=== PATIENT | female | born 1970 | race Caucasian/White ===

== ENCOUNTER 2017-05-05 05:25 | Day surgery (SDC) | payer OTHER ==
[~2017-05-05] VITALS: Ht 165.1 cm; Wt 90.0 kg
[~2017-05-05 05:25] MED LIST: ALPRAZOLAM0.25 M2 PO; ANTIVERT25 MG PO; ESCITALOPRAM OX10 MG PO; MAXALT10 MG PO; MOTRIN800 MG PO; NOHOMEMEDS; NORCO 7.5/321 TABLET PO; PEPCID40 MG PO; RIZATRIPTAN10 MG PO; SYNTHROID100 MCG PO; VALIUM5 MG PO; VITAMIN B-3 PO; ZOFRAN4 MG PO
[2017-05-05 06:13] VITALS: BP 114/60
[2017-05-05 10:05] VITALS: BP 140/74
[2017-05-05 10:52] VITALS: BP 150/76
== END 2017-05-05 11:12 | disposition home or self-care (01) ==
LOC: SDC 05:25
DX: N84.0 Polyp of corpus uteri (principal); N92.0 Excessive and frequent menstruation with regular cycle; E03.9 Hypothyroidism, unspecified; E66.9 Obesity, unspecified; F43.22 Adjustment disorder with anxiety
CPT/HCPCS: 88305; J0131; J0690; J1100; J1170; J1885; J2250; J2405; J3010

== ENCOUNTER 2017-05-12 07:01 | Emergency (ER) | payer OTHER ==
[~2017-05-12] VITALS: Ht 165.1 cm; Wt 93.9 kg
[2017-05-12 08:06] LABS: BASOPHIL COUNT 0.1 K/uL (0-0.1); EOSINOPHIL (%) 2.3 % (0-5); EOSINOPHIL COUNT 0.3 K/uL (0-0.3); HEMATOCRIT 42.1 % (36.0-46.0); IMMATURE GRANULOCYTE (%) 0.7 % (0.0-0.7); IMMATURE GRANULOCYTE COUNT 0.1 K/uL; INSTRUMENT ABS NEUTROPHIL CT 7.6 K/uL; LYMPHOCYTE COUNT 2.3 K/uL (1.0-2.8); MCH 29.7 PG (29.0-34.0); MCV 87.5 FL (83-99); MEAN PLAT.VOLUME 11.7 uM^3 (9.5-12.4); MONOCYTE (%) 11.3 % (3-12); MONOCYTE COUNT 1.3 K/uL (0-0.8); NEUTROPHIL (%) 65.6 % (45-76); NEUTROPHIL COUNT 7.6 K/uL (1.8-6.4); PLATELET COUNT 247 K/uL (156-360); RBC DIS.WIDTH-CV 12.7 % (11.8-14.6); RBC DIS.WIDTH-SD 40.9 % (39-53); RED BLOOD COUNT 4.81 M/uL (3.80-5.20); WHITE BLOOD COUNT 11.6 K/uL (4.1-10.2)
[2017-05-12 08:46] LABS: ANION GAP 10 MEQ/L (2-14); CHLORIDE 105 MEQ/L (99-109); GFR ESTIMATE (CALCULATED) > 59 mL/min/; GLUCOSE 110 mg/dL (70-99); POTASSIUM 3.3 MEQ/L (3.7-5.4); SAMPLE HEMOLYSIS CHECK 0; SAMPLE ICTERIC CHECK 0; SAMPLE LIPEMIA CHECK 0; SODIUM 139 MEQ/L (136-147); UREA NITROGEN (BUN) 16 mg/dL (9-23)
[2017-05-12] MEDS ORDERED: ANTIVERT25 MG PO (11:10)
[2017-05-12 12:22] VITALS: BP 111/69
== END 2017-05-12 13:00 | disposition home or self-care (01) ==
LOC: EME 07:01
PROVIDERS: Emergency Medicine
DX: R42 Dizziness and giddiness (principal)
CPT/HCPCS: 80048; 85025; 93005; 99281; 99285; J2060; J2405; J7030